=== PATIENT | male | born 1995 | race Caucasian/White ===

== ENCOUNTER 2018-05-08 10:58 | Emergency (ER) | payer OTHER ==
[2018-05-08] MEDS ORDERED: HYDROmorphone 1 MG/ML Syringe IVPUSH ONE ×2 (11:07→12:35)
[2018-05-08] MEDS ORDERED: Metoclopramide 10 MG/2 ML SDV IVPUSH ONE (11:08)
--- NOTE | 2018-05-08 11:10 | EDM.PDOC ---
ED HPI GENERAL MEDICAL PROBLEM - General Chief Complaint: Trauma Stated Complaint: HIT IN THE FACE WITH A PIPE Time Seen by Provider: 05/08/18 11:07 Source of Information: Reports: Patient History Limitations: Reports: No Limitations - History of Present Illness INITIAL COMMENTS - FREE TEXT/NARRATIVE: 22-year-old male presents to the ED after suffering blunt trauma to the left shona-face at work this morning. He was using a pry bar when it slipped and struck him directly in the left side of the face knocking him to the ground and knocking off his hard hat. States he was dazed for a period of time but then it seemed to clear after about 5-10 minutes. Associated nausea and stopped the feeling of difficulty swallowing his saliva. Feels like he is making more saliva than normal. Injury occurred about 0945 hrs. [place] today. Tetanus toxoid is up-to-date. Not spitting up any blood. Onset: Today Onset Date: 05/08/18 Onset Time: 09:45 Duration: Hour(s): Location: Reports: Head, Face (Blunt trauma to the left shona-face) Quality: Reports: Ache, Throbbing (Left lateral face and) Severity: Moderate (jaw) Improves with: Reports: None Worsens with: Reports: None, Other (Cannot open his jaw fully.) Context: Denies: Activity, Exercise, Lifting, Sick Contact Associated Symptoms: Reports: Other (Feels like he is making excessive [place] saliva.) Treatments ENROLLED AGENT: Reports: Other (see below) (None.) Left Face/Facial Pain Score (Numeric/FACES): 9 - Related Data Allergies Allergy/AdvReac Type Severity Reaction Status Date / Time No Known Allergies Allergy Verified 05/08/18 11:16 Home Meds: Home Meds Ondansetron [Zofran] 4 mg BUCCAL Q6H PRN #8 tab 05/08/18 [Rx] Polyethylene Glycol 3350 [MiraLAX] 17 gm PO DAILY #1 cont 05/08/18 [Rx] oxyCODONE HCl/Acetaminophen [Percocet 10-325 mg Tablet] 1 each PO Q4H #24 tablet 05/08/18 [Rx] Social & Family History - Living Situation & Occupation Living situation: Reports: Single Occupation: Employed Review of Systems - Review of Systems Review Of Systems: See Below Constitutional: Reports: No Symptoms Eyes: Reports: No Symptoms Ears: Reports: No Symptoms Nose: Reports: No Symptoms Mouth/Throat: Reports: Other (Marked trismus and is unable to open his mouth due to severe pain left shona-face.) Respiratory: Reports: No Symptoms ( Swelling left shona-face where he was struck by her primary this morning), Other (Feels like he is choking a little bit and has excessive salivation.) Cardiovascular: Reports: No Symptoms GI/Abdominal: Reports: No Symptoms Genitourinary: Reports: No Symptoms Musculoskeletal: Reports: Other Skin: Reports: No Symptoms Neurological: Reports: No Symptoms (Facial pain to history of illness) Psychiatric: Reports: No Symptoms ED EXAM, GENERAL - Physical Exam Exam: See Below Exam Limited By: No Limitations General Appearance: Alert, WD/WN, Anxious, Moderate Distress Eye Exam: Bilateral Eye: PERRL Ears: Other (Bilateral cerumen impaction. I could not visualize the tympanic membranes) Throat/Mouth: Normal Inspection, Normal Lips, Normal Teeth, Normal Oropharynx, Other (No oropharyngeal bleeding appreciated teeth appear to be intact. Swelling over the left shona-face particularly the zygomatic arch and the medial condyle of the mandible. No open fractures identified) Head: Facial Swelling, Facial Tenderness (Left shona-facial swelling and marked pain along the distribution of the left mandibular condyle and angle of the mandible), Other (Mild swelling right parietal scalp.). No: Sinus Tenderness ( in the face) Neck: Normal Inspection, Supple, Non-Tender, Full Range of Motion. No: Lymphadenopathy (L), Lymphadenopathy (R) Respiratory/Chest: No Respiratory Distress, Lungs Clear, Normal Breath Sounds, No Accessory Muscle Use Cardiovascular: Normal Peripheral Pulses, Regular Rate, Rhythm, No Edema, No Gallop, No Murmur, No Rub Peripheral Pulses: 3+: Posterior Tibial (L), Posterior Tibial (R), Dorsalis Pedis (L), Dorsalis Pedis (R) GI/Abdominal: Normal Bowel Sounds, Soft, Non-Tender, No Organomegaly, No Abnormal Bruit, No Mass, Pelvis Stable Back Exam: Normal Inspection, Full Range of Motion. No: CVA Tenderness (L), CVA Tenderness (R) Extremities: Normal Inspection, Normal Range of Motion, Non-Tender, No Pedal Edema Neurological: Alert, Oriented, CN II-XII Intact, Normal Cognition, Normal Gait, No Motor/Sensory Deficits Psychiatric: Other. No: Normal Affect, Normal Mood Skin Exam: Warm, Dry, Intact (In a good deal of pain.), Normal Color, No Rash, Other ((Fractures in the oral cavity) Course - Vital Signs Last Recorded V/S: Last Vital Signs Temp 37.1 C 05/08/18 11:20 Pulse 94 05/08/18 11:20 Resp 20 05/08/18 11:20 BP 149/92 H 05/08/18 11:20 Pulse Ox 100 05/08/18 11:20 - Orders/Labs/Meds Orders: Active Orders 24 hr Category Date Time Status Head wo Cont [CT] Stat Exams 05/08/18 11:10 Taken Maxillofacial w/o CM [Max Facial Sinus wo Cont] [CT] Exams 05/08/18 11:08 Taken Stat Sodium Chloride 0.9% [Normal Saline] 1,000 ml Med 05/08/18 11:15 Active IV ASDIRECTED Medication Orders Sodium Chloride (Normal Saline) 1,000 mls @ 150 mls/hr IV ASDIRECTED ISHMAEL Last Admin: 05/08/18 11:20 Dose: 150 mls/hr Meds: Medications Generic Name Dose Route Start Last Admin Trade Name Freq PRN Reason Stop Dose Admin Sodium Chloride 1,000 mls @ 150 mls/hr 05/08/18 11:15 05/08/18 11:20 Normal Saline IV 150 mls/hr ASDIRECTED ISHMAEL Administration Discontinued Medications Generic Name Dose Route Start Last Admin Trade Name Freq PRN Reason Stop Dose Admin Hydromorphone HCl 1 mg 05/08/18 11:07 05/08/18 11:26 Dilaudid IVPUSH 05/08/18 11:08 1 mg ONETIME ONE Administration Metoclopramide HCl 10 mg 05/08/18 11:08 05/08/18 11:25 Reglan IVPUSH 05/08/18 11:09 10 mg ONETIME ONE Administration - Radiology Interpretation Free Text/Narrative:: 22-year-old male presents to the ED after suffering blunt trauma to the left shona-face in the workplace this morning. At about 0945 hrs. he was struck by a private bar left shona-face which knocked off his heart had a knocked him to the ground. He was dazed for about 5-10 minutes. Having increased pain left shona- face and inability to open his mandible all the way. Pain is localized to the mid lateral condyle and zygomatic process of the face. Plan still IV normal saline at 150 mils per hour given Dilaudid 1 mg IV and Reglan 10 mg IV for pain and nausea relief. CT maxillofacial bones and had to be done - Re-Assessments/Exams Free Text/Narrative Re-Assessment/Exam: 05/08/18 12:10 CT of the head is within normal limits showing no fractures or intracranial bleeding or mass effect. CT of the maxillofacial bones reveals a comminuted fracture of the left mandibular condyle just posterior to his wisdom tooth or third molar. Fracture does extend into the posterior aspect of the third molar tooth socket. There is slight displacement of this fracture posteriorly. I could not see any other fractures in the right side of the mandible. I will speak with maxillofacial surgeon in [place]. Likely will be seen next week. She reports pain is tolerable at this point time. 05/08/18 12:26 I have spoken with --maxillofacial surgeon at [place]. He will see the patient on Friday between 1 and 2 PM with a plan to provide surgical repair the following morning if he requires it. In the meantime of course patient be on a soft diet and plenty of pain medication as needed. Also will be started MiraLAX powder 17 g daily to prevent constipation from occurring. Please call [phone] on Friday a.m. to obtain Dr. ricks` s current office address. 05/08/18 12:36 patient is having a lot more pain at the fracture site. Will repeat Dilaudid 1 mg IV. Departure - Departure Time of Disposition: 12:36 Disposition: Home, Self-Care 01 Condition: Fair Clinical Impression: Closed fracture of condylar process of mandible Qualifiers: Encounter type: initial encounter Laterality: left Qualified Code(s): S02.612A - Fracture of condylar process of left mandible, initial encounter for closed fracture - Discharge Information *PRESCRIPTION DRUG MONITORING PROGRAM REVIEWED*: Not Applicable *COPY OF PRESCRIPTION DRUG MONITORING REPORT IN PATIENT ANGELO: Not Applicable Prescriptions: Ondansetron [Zofran] 4 mg BUCCAL Q6H PRN #8 tab PRN Reason: nausea or vomiting oxyCODONE HCl/Acetaminophen [Percocet 10-325 mg Tablet] 1 each PO Q4H #24 tablet Polyethylene Glycol 3350 [MiraLAX] 17 gm PO DAILY #1 cont Forms: ED Department Discharge, ED Return to Work/School Form Additional Instructions: Evaluation the emergency room today in regards to work related injury this morning. You are struck in the left shona-face by a private bar accidentally in the workplace which knocked her to the ground and major days for a period of time. It also knocked your hard hat off. Since injury or recognize that you're little dazed for a period of time but now seem to be better. Identified to be having trouble swallowing saliva due to pain. Examanation reveals swelling and pain along the left mandible or jaw. CT scan of the head is within normal limits showing no intracranial bleeding or swelling or fracture. Maxillofacial bone CT reveals a fracture of the left jaw just above the angle of the mandible just behind your left wisdom tooth. I have spoken to a maxillofacial surgeon who works at [facility] in [place]. He indicates he would like to see you in the office between 1 and 2 PM on May 11. Please phone [phone] 100 morning to clarify where his office is. He suggests you plan on staying in [facility] overnight because if surgery is required he would do it the following morning. In the meantime diet is to be soft such as milkshakes yogurt anything through a straw etc. He will not be able to chew anything. Ice pack to the left shona-face one half hour out of every 4 hours for the next 2 days. Pain medication is Percocet 10/325 mg one every 4 hours as needed for pain relief. Because narcotic pain medication causes constipation suggest you meat pickler some MiraLAX powder and to start taking 17 g or 1 scoop daily mixed with any fluid of choice to prevent constipation from occurring. Her fracture is lined up fairly well and may not require surgery. I have written a note to excuse her from the work place for at least the next 7 days and discuss this with Dr. Ricks as to when you love return to work. Of course this will depend on whether or not surgical repair as required. Prescription also written for Zofran 4 mg under the tongue every 6 hours as needed for nausea relief. Sometimes the pain medication will cause nausea. - My Orders Last 24 Hours: My Active Orders 05/08/18 11:08 Maxillofacial w/o CM [Max Facial Sinus wo Cont] [CT] Stat 05/08/18 11:10 Head wo Cont [CT] Stat 05/08/18 11:15 Sodium Chloride 0.9% [Normal Saline] 1,000 ml IV ASDIRECTED - Assessment/Plan Last 24 Hours: My Active Orders 05/08/18 11:08 Maxillofacial w/o CM [Max Facial Sinus wo Cont] [CT] Stat 05/08/18 11:10 Head wo Cont [CT] Stat 05/08/18 11:15 Sodium Chloride 0.9% [Normal Saline] 1,000 ml IV ASDIRECTED
[2018-05-08] MEDS ORDERED: Sodium Chloride 0.9% 1,000 ML IV SCH (11:15)
--- NOTE | 2018-05-08 12:45 | CT ---
Head CT Technique: Multiple axial sections through the brain were obtained. Intravenous contrast was not utilized. Findings: Ventricles along with basal cisterns and sulci over the convexities are within normal limits for the patient's age. No abnormal parenchymal densities are seen. No evidence of intracranial hemorrhage. No midline shift or mass effect is seen. Minimal areas of mucosal thickening noted within the ethmoid sinuses which is likely incidental. No acute calvarial abnormality is appreciated. Impression: 1. Minimal sinus findings which are felt to be incidental. 2. Nothing acute is seen on noncontrast head CT study. Diagnostic code #2
--- NOTE | 2018-05-08 12:45 | CT ---
CT facial bones Technique: Multiple axial sections through the facial bones were obtained. Reconstructed coronal and sagittal images were reviewed. Findings: Nasal septal deviation is seen. Mild areas of mucosal thickening are seen within the ethmoid sinuses. Fracture is identified within the angle of the left side of the mandible extending into the posterior molar tooth socket. Minimal displacement is seen. No additional mandibular fracture is noted. No additional facial bone fracture is noted. No air-fluid level is seen within the sinuses. Right and left globes are symmetric. Impression: 1. Slightly displaced left-sided mandible fracture. 2. Other incidental findings. Diagnostic code #3
== END 2018-05-08 13:06 | disposition home or self-care (01) ==
LOC: JD.ED 10:58
DX: S02.612A Fracture of condylar process of left mandible, initial encounter for closed fracture (principal); W22.8XXA Striking against or struck by other objects, initial encounter
CPT/HCPCS: 70450; 70486; 96361; 96374; 96375; 96376; 99283; J1170; J2765; J7040; 99284

== ENCOUNTER 2022-05-16 13:47 | Emergency (ER) | payer BC, OTHER ==
[2022-05-16] MEDS ORDERED: Nicotine 14 MG/24 Hr Patch TRDERM ONE (15:08)
[2022-05-16] MEDS ORDERED: LORazepam 1 MG Tab PO STA (15:08)
[2022-05-16] MEDS ORDERED: Nicotine 21 MG/24 Hr Patch TRDERM SCH (15:15)
== END 2022-05-16 20:51 | disposition home or self-care (01) ==
LOC: JD.ED 13:47
DX: F10.920 Alcohol use, unspecified with intoxication, uncomplicated (principal); R45.89 Other symptoms and signs involving emotional state; Z20.822 Contact with and (suspected) exposure to COVID-19
CPT/HCPCS: 36415; 80053; 80143; 80179; 80306; 80307; 84443; 85025; 87635; 99284; A9270; U0002